=== PATIENT | male | born 1975 | race Two or more races ===

== ENCOUNTER 2016-07-16 11:21 | Emergency (ER) | payer BC ==
[~2016-07-16 11:21] MED LIST: MUSCLE RELAXER
[2016-07-16 11:37] LABS: BASO % 0.5 % (0-2); EOSINOPHIL ABSOLUTE COUNT 0.1 tho/cmm (0.0-0.7); HCT-HEMATOCRIT 47.1 % (36.0-53.5); HGB-HEMOGLOBIN 15.7 gm/dl (13.5-17.0); IMMATURE GRANULOCYTES ABSOLUTE 0.01 tho/cmm (0-0.03); IMMATURE GRANULOCYTES PERCENT 0.2 % (0-0.3); LYMPH % 34.6 % (20-45); LYMPH ABSOLUTE COUNT 2.2 tho/cmm (0.8-4.5); MCH (MEAN CORPUSCULAR HGB) 27.1 pg (28.0-32.0); MCHC MEAN CORPUSCULAR HGB CONC 33.3 % (32.0-36.0); MCV (MEAN CELL VOLUME) 81.2 fl (82.0-96.0); MEAN PLATELET VOLUME 9.9 cmc (9.4-12.4); MONO % 9.2 % (0-12); MONOCYTE ABSOLUTE COUNT 0.6 tho/cmm (0.0-1.2); NEUTROPHIL ABSOLUTE COUNT 3.4 tho/cmm (1.6-8.0); NEUTROPHIL-AUTOMATED 3.4 tho/cmm (1.6-8.0); NEUTROPHILS % 54.5 % (40-80); PLATELET COUNT 213 tho/cmm (150-450); RED CELL DISTRIBUTION WIDTH 13.4 % (12.4-16.4); WHITE BLOOD COUNT 6.3 tho/cmm (4.0-10.0)
[2016-07-16 11:55] LABS: ALBUMIN 3.7 g/dl (3.5-5.0); ALKALINE PHOSPHATASE 80 U/L (33-138); ALT/SGPT 37 U/L (12-78); BILIRUBIN,TOTAL 0.2 mg/dl (0.0-1.5); BLOOD UREA NITROGEN 11 mg/dl (6-24); CALCIUM 8.5 mg/dl (8.5-10.5); CARBON DIOXIDE-VENOUS 32 mmol/L (22-32); CHLORIDE 104 mmol/l (96-110); CREATININE 0.92 mg/dl (0.60-1.30); GLUCOSE 105 mg/dL (70-110); SODIUM 141 mmol/L (135-145); eGFR VALUE FOR BLACK >90 mL/Min
[2016-07-16 11:59] LABS: CKMB 3.4 ng/ml (<3.6); TSH-THYROID STIMULATING HORM. 2.03 uIU/ml (0.40-3.80)
[2016-07-16 12:27] LABS: ANION GAP 9 mmol/L (0-20); AST/SGOT 24 U/L (10-40); CREATINE PHOSPHOKINASE (CPK) 199 U/L (35-232)
[2016-07-16] MEDS ORDERED: ULTRAM50 M1 PO (12:48)
== END 2016-07-16 12:57 ==
LOC: EDMED 11:21
PROVIDERS: Nurse Practitioner Family
DX: M79.1 Myalgia (principal)